=== PATIENT | female | born 1995 | race Caucasian/White ===

== ENCOUNTER → 2017-08-07 | Day surgery (SDC) | payer OTHER ==
--- NOTE | 2017-08-10 15:51 | PATH ---
Surgical Pathology Report Patient Name: MARLEN SCRUGGS Med. Rec. #: [id number] /Age/Gender: 1995 (Age: 22) / F Account: [id number] Location: [facility] RADIOLOGY U Taken: 08/07/2017 Received: 08/07/2017 Reported: 08/10/2017 Physicians: Petra Rollins M.D. Specimen(s) Received RIGHT BREAST 3:00 10 CM FN CORE BIOPSY Clinical History Palpable mass Ultrasound findings: Probably benign Final Diagnosis BREAST, RIGHT, 3:00, 10 CM FN, CORE BIOPSY: BENIGN BREAST TISSUE SHOWING FIBROADENOMA. Electronically Signed Pam Jiménez M.D. Gross Description Received in formalin, labeled "right breast 3:00 10 cm fn" are multiple cores of light blas tissue ranging from 0.4-1.2 cm in length with a diameter of up to 0.3 cm. Entirely submitted in two cassettes.
--- NOTE | 2017-08-11 09:38 | OP ---
DATE OF OPERATION: 08/07/2017 PREOPERATIVE DIAGNOSIS: Right breast mass, 3 o'clock, 10 cm from the nipple. POSTOPERATIVE DIAGNOSIS: Right breast mass, 3 o'clock, 10 cm from the nipple. PROCEDURE: Right ultrasound-guided core biopsy. ANESTHESIA: Local. ATTENDING SURGEON: BEATRICE NAIR M.D. ESTIMATED BLOOD LOSS: None. COMPLICATION: None. The patient was made aware of the risks and benefits of the procedure and consented. She was placed in the supine position. Under sterile conditions, I used 1% lidocaine for local anesthesia. A small zach was made in the skin. Using a 13-gauge suction biopsy inferior lateral approach under ultrasound guidance multiple cores were obtained and submitted to pathology. No clip was placed, since this was a large lesion. Steri-Strips and a sterile bandage were applied. Patient tolerated the procedure well. Will contact her with the results. BEATRICE NAIR M.D. [id number]
== END | disposition home or self-care (01) ==
LOC: FRADUS-SUR 13:03
PROVIDERS: ATTEND Surgery
PROC: 0HBT3ZX Excision of Right Breast, Percutaneous Approach, Diagnostic (ICD-10-PCS; principal; 2017-08-07)
DX: D24.1 Benign neoplasm of right breast (principal); N63.10 Unspecified lump in the right breast, unspecified quadrant
CPT/HCPCS: 19083; 88305-TC

== ENCOUNTER 2017-12-17 06:20 | Day surgery (SDC) | payer OTHER ==
[2017-12-08 14:58] VITALS: BMI 48.8
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
[2017-12-17] MEDS ORDERED: MIDAZOLAM HCL 2 MG/2 ML SINGLE DOSE VIAL ONE (07:43)
[2017-12-17] MEDS ORDERED: PROPOFOL 20 ML ONE ×2 (07:43)
[2017-12-17] MEDS ORDERED: SUCCINYLCHOLINE CHLORIDE 200 MG/10 ML VIAL ONE (07:43)
[2017-12-17] MEDS ORDERED: LIDOCAINE HCL 1%, 10 MG/ML (20ML VIAL) ONE (07:43)
[2017-12-17] MEDS ORDERED: BUPIVACAINE HCL/PF 2.5 MG/ML - 30 ML VIAL IJ ONE (07:43)
[2017-12-17] MEDS ORDERED: LIDOCAINE HCL 1%, 10 MG/ML (50 mL VIAL) IJ ONE ×2 (08:17)
[2017-12-17] MEDS ORDERED: BUPIVACAINE HCL/PF 0.25% (2.5MG/ML) 10 ML VIAL IJ ONE ×2 (08:30→08:53)
[2017-12-17] MEDS ORDERED: oxyCODONE HCL 5 MG TABLET PO PRN ×3 (09:32→09:37)
[2017-12-17] MEDS ORDERED: ONDANSETRON 4 MG/2 ML VIAL IVPUSH PRN ×2 (09:32→09:37)
[2017-12-17] MEDS ORDERED: KETOROLAC TROMETHAMINE 30 MG/1 ML VIAL IVPUSH PRN ×2 (09:32→09:47)
[2017-12-17] MEDS ORDERED: PROMETHAZINE HCL 25 MG/1 ML VIAL IVPUSH PRN (09:37)
[2017-12-17] MEDS ORDERED: DEXTROSE 5%-0.45% SALINE 1,000 ML IV SCH ×2 (09:45→10:00)
[2017-12-17] MEDS ORDERED: LACTATED RINGERS SOLUTION 1,000 ML IV SCH (09:45)
[2017-12-17] MEDS ORDERED: [UNRECOGNIZED DRUG - OTHER] PO SCH (10:00)
[2017-12-17] MEDS ORDERED: FOLIC AC PO SCH (10:00)
[2017-12-17] MEDS ORDERED: MULTIVIT MIN PO SCH (10:00)
[2017-12-17] MEDS ORDERED: ETONOGESTREL 68 MG SQ SCH (10:00)
[2017-12-17] MEDS ORDERED: IRON FUM PO SCH (10:00)
[2017-12-17 10:44] VITALS: BP 128/74; PULSE 89; TEMP 98
[2017-12-17] MEDS ORDERED: QUEtiapine FUMARATE 50 MG TABLET PO SCH (22:00)
--- NOTE | 2017-12-23 12:15 | OP ---
DATE OF OPERATION: 12/17/2017 PREOPERATIVE DIAGNOSIS: Right breast mass. POSTOPERATIVE DIAGNOSIS: Right breast mass. PROCEDURE: Excision of right breast mass. SURGEON: Andrade Hua MD SENIOR PRICING ANALYST: ANESTHESIOLOGIST: Neptali Mccray MD ANESTHESIA: General. SPECIMENS: Right breast mass. ESTIMATED BLOOD LOSS: Minimal. INDICATION FOR PROCEDURE: The patient is a 22-year-old woman who has a right breast mass which has been present for several months. Excision was recommended due to the size of the mass. The procedure, risks, and complications were discussed with her prior to surgery. DESCRIPTION OF PROCEDURE: The patient was identified in ASU. Informed consent was obtained. The right breast was marked to identify laterality. Examination of the right breast showed a large mass at 3 o'clock. The patient was taken to the operating room and placed on the operating table in the supine position. Sequential compression devices were placed on both legs. General anesthesia was initiated. The right breast was prepped and draped in the usual fashion. A timeout was performed. The skin over the mass was infiltrated with 1% lidocaine. A horizontal incision was made over the mass in a skin crease. The incision was deepened using electrocautery until the mass was exposed. The mass was firm and multi-lobulated, consistent with a fibroadenoma. Electrocautery was used to separate the mass from the surrounding breast parenchyma. The mass was removed in its entirety and placed in formalin and sent to Pathology. Bleeding was controlled with electrocautery. The skin was then infiltrated with 0.25% Marcaine. The deep tissue was closed with interrupted sutures of 3-0 Vicryl. The dermis was closed with interrupted sutures of 3-0 Vicryl. The skin was closed with a running subcuticular closure of Biosyn. The patient tolerated the procedure well. At the end of the procedure, she was extubated and taken to the PACU in satisfactory condition. The wound was covered with Dermabond and then a sterile gauze dressing. A bra was applied. ANDRADE HUA M.D. [id number]
--- NOTE | 2017-12-23 12:58 | PATH ---
Surgical Pathology Report Patient Name: MARLEN SCRUGGS [facility]. Rec. #: [id number] /Age/Gender: 1995 (Age: 22) / F Account: [id number] Location: [facility] AM[facility] Taken: 12/17/2017 Received: 12/17/2017 Reported: 12/23/2017 Physicians: Barbara Hua M.D. Specimen(s) Received RIGHT BREAST MASS AT 3 O'CLOCK Clinical History Palpable mass Final Diagnosis RIGHT BREAST MASS AT 3:00, EXCISION: BENIGN PHYLLODES TUMOR. THE TUMOR PRESENT AT INKED MARGINS. COMMENT: THE TUMOR IS CIRCUMSCRIBED WITH PUSHING BORDER, THE MITOTIC COUNT IS 1-2/10 HPF IN MITOTIC ACTIVE AREAS. FOCAL INFARCTION PRESENT. NO CELLULAR ATYPIA NOTED. IMMUNOHISTOCHEMICAL STAIN (AT BLOCK 7) PERFORMED AT [facility] ([id number]) SHOW MINIMAL NUCLEAR STAINING OF THE STROMA. FINDINGS ARE CONSISTENT WITH A BENIGN PHYLLODES TUMOR. Electronically Signed Rosette Guy M.D. Gross Description Received in formalin labeled "right breast mass at 3:00," is a 6.7 x 6.3 x 2.8 cm markedly fragmented, unoriented rubbery mass. There is no needle localization wire present. There is no skin or nipple present. The specimen is inked blue and serially sectioned. Sectioning reveals homogeneous blas, rubbery parenchyma. Software Test Automation Engineer sections are sequentially submitted in 9 cassettes. Time to formalin fixation: 4 minutes Total formalin fixation time: Approximately 33 hours. /12/18/2017 saudi/12/18/2017
== END 2017-12-17 11:20 | disposition home or self-care (01) ==
LOC: FASU 06:20
PROVIDERS: ATTEND Surgery
PROC: 0HBT0ZX Excision of Right Breast, Open Approach, Diagnostic (ICD-10-PCS; principal; 2017-12-17 08:17)
DX: D24.1 Benign neoplasm of right breast (principal)
CPT/HCPCS: 84703; 88307-TC; 94760